=== PATIENT | male | born 1965 ===

== ENCOUNTER 2017-03-29 12:25 | Emergency (ER) | payer MEDICARE ==
[2017-03-29 12:26] VITALS: BMI 28.1
--- NOTE | 2017-03-29 13:02 | ED PDOC ---
Arrival/HPI - General Chief Complaint: Back Pain Time Seen by Provider: 03/29/17 12:45 Historian: Patient - History of Present Illness Narrative History of Present Illness (Text): 03/29/17 12:57 A 51 year old male, whose past medical history includes chronic back pain, presents to the emergency department complaining of lower back pain for 4 days. Patient reports has experienced back pain for years but has recently worsened. Also, patient mentions pain radiates down to his calves bilaterally. Patient states he does not work at this time, and has no history of smoking, EtOH abuse and substance abuse. Patient denies of any nausea, vomiting, diarrhea, urinary output changes, or any other complaints. PMD: Dr. Rohith Smith Time/Duration: < week (4 days) Symptom Onset: Gradual Symptom Course: Unchanged Associated Symptoms (Text): 03/29/17 13:22 Chronic low back pain for many years with multiple previous back surgeries. Pain radiated to both calves for 6 or 8 months. He complains of worsening pain over the last 4 days. No injury or trauma. No relief with Naprosyn. No abdominal pain nausea vomiting diarrhea constipation or GI bleeding. No genitourinary symptoms. No weakness. No injury or trauma. He appears comfortable and in no distress. No imaging is indicated at this time. Past Medical History - Provider Review Nursing Documentation Reviewed: Yes - Cardiac Hx Cardiac Disorders: Yes - Pulmonary Hx Respiratory Disorders: No - Neurological Hx Neurological Disorder: No - HEENT Hx HEENT Disorder: No - Renal Hx Renal Disorder: No - Endocrine/Metabolic Hx Endocrine Disorders: No - Hematological/Oncological Hx Blood Disorders: No - Integumentary Hx Dermatological Disorder: No - Musculoskeletal/Rheumatological Hx Musculoskeletal Disorders: Yes Hx Back Pain: Yes Hx Herniated Disk: Yes Hx Spinal Stenosis: Yes - Gastrointestinal Hx Gastrointestinal Disorders: No - Genitourinary/Gynecological Hx Genitourinary Disorders: No - Psychiatric Hx Psychophysiologic Disorder: No Hx Substance Use: No - Surgical History Hx Orthopedic Surgery: Yes (SPINAL DECOMPRESSION, FUSSION, LAMINECTOMY) - Anesthesia Hx Anesthesia: Yes Hx Anesthesia Reactions: No Hx Malignant Hyperthermia: No - Suicidal Assessment Feels Threatened In Home Enviroment: No Family/Social History - Physician Review Nursing Documentation Reviewed: Yes Family/Social History: No Known Family HX Smoking Status: Never Smoked Hx Alcohol Use: No Hx Substance Use: No Allergies/Home Meds Allergies/Adverse Reactions: Allergies No Known Allergies Allergy (Verified 03/29/17 12:45) Review of Systems - Physician Review All systems were reviewed & negative as marked: Yes - Review of Systems Constitutional: Normal Respiratory: Normal Cardiovascular: Normal Gastrointestinal: absent: Abdominal Pain, Diarrhea, Nausea, Vomiting Genitourinary Male: absent: Dysuria, Frequency, Hematuria, Urinary Output Changes Musculoskeletal: Back Pain (lower back pain radiating down to calves bilaterally ). absent: Neck Pain Neurological: absent: Focal Weakness, Gait Changes Physical Exam Vital Signs Reviewed: Yes Vital Signs Temp Pulse Resp BP Pulse Ox 03/29/17 12:51 98.0 F 64 16 120/79 99 Temperature: Afebrile Blood Pressure: Normal Pulse: Regular Respiratory Rate: Normal Appearance: Positive for: Well-Appearing, Non-Toxic, Comfortable Pain Distress: Mild Mental Status: Positive for: Alert and Oriented X 3 - Systems Exam Head: Present: Atraumatic, Normocephalic Pupils: Present: PERRL Extroacular Muscles: Present: EOMI Conjunctiva: Present: Normal Mouth: Present: Moist Mucous Membranes Neck: Present: Normal Range of Motion Respiratory/Chest: Present: Clear to Auscultation, Good Air Exchange. No: Respiratory Distress, Accessory Muscle Use Cardiovascular: Present: Regular Rate and Rhythm, Normal S1, S2. No: Murmurs Abdomen: Present: Normal Bowel Sounds. No: Tenderness, Distention, Peritoneal Signs, Rebound, Guarding Back: Present: Paraspinal Tenderness (mild paraspinal lumbar tenderness bilaterally). No: CVA Tenderness, Midline Tenderness, Other (no scoliosis, no spasms) Upper Extremity: Present: Normal Inspection. No: Cyanosis, Edema Lower Extremity: Present: Normal Inspection, NORMAL PULSES, Other (straight leg test negative). No: Edema, CALF TENDERNESS Neurological: Present: GCS=15, CN II-XII Intact, Speech Normal, Motor Func Grossly Intact, Normal Sensory Function, Normal Cerebellar Funct, Gait Normal, Memory Normal Skin: Present: Warm, Dry, Normal Color. No: Rashes Psychiatric: Present: Alert, Oriented x 3, Normal Insight, Normal Concentration Medical Decision Making ED Course and Treatment: 03/29/17 13:00 Impression: 52 year old male with lower back pain radiating down to calves bilaterally. Physical exam shows mild paraspinal lumbar tenderness, no scoliosis , no spasms; straight leg test negative; normal neuro exam. Plan: -- Flexiril -- Toradol -- Reassess and disposition Prior Visits: Notes and results from previous visits were reviewed. Patient was last seen in the emergency department on 07/28/2013 for with acute exacerbation. Patient was discharged home. Progress Notes: 03/29/17 14:21 Complete relief of pain post-Toradol and Flexeril. - Medication Orders Current Medication Orders: Discontinued Medications Cyclobenzaprine HCl (Flexeril) 10 mg PO ONCE MONIQUE Cyclobenzaprine HCl (Flexeril) 10 mg PO ONCE ONE Stop: 03/29/17 13:01 Last Admin: 03/29/17 13:35 Dose: 10 mg Ketorolac Tromethamine (Toradol) 60 mg IM ONCE ONE Stop: 03/29/17 12:53 Last Admin: 03/29/17 13:33 Dose: 60 mg MAR Pain Assessment Document 03/29/17 13:33 AB (Rec: 03/29/17 13:34 AB [id number]) Pain Reassessment Is this a pain reassessment? Yes Sleep Is patient sleeping during reassessment? No Presence of Pain Presence of Pain Yes Pain Scale Used Pain Scale Used Numeric Location Upper or Lower Lower Pain Location Body Site Back Description Description Constant Intensity of Pain at present 10 Pain Behavior Rubbing Site Aggravating Factors ADL's Changing Position Exercise/Activity Alleviating Factors/Management Medication Techniques Heat Alleviating Factors Medication IM Administration Charges Document 03/29/17 13:33 AB (Rec: 03/29/17 13:34 AB [id number]) Injection Site MAR Injection Site Left Deltoid Charges for Administration # of IM Administrations 1 - Scribe Statement The provider has reviewed the documentation as recorded by the Vanessa Majano Provider Scribe Attestation: All medical record entries made by the Vanessa were at my direction and personally dictated by me. I have reviewed the chart and agree that the record accurately reflects my personal performance of the history, physical exam, medical decision making, and the department course for this patient. I have also personally directed, reviewed, and agree with the discharge instructions and disposition. Disposition/Present on Arrival - Present on Arrival Any Indicators Present on Arrival: No History of DVT/PE: No History of Uncontrolled Diabetes: No Urinary Catheter: No History of Decub. Ulcer: No History Surgical Site Infection Following: None - Disposition Have Diagnosis and Disposition been Completed?: Yes Diagnosis: Low back pain Disposition: HOME/ ROUTINE Disposition Time: 14:21 Patient Plan: Discharge Condition: IMPROVED Discharge Instructions (ExitCare): Acute Low Back Pain (ED) Prescriptions: Cyclobenzaprine [Cyclobenzaprine HCl] 5 mg PO Q8 #15 tab Cyclobenzaprine [Cyclobenzaprine HCl] 5 mg PO Q8 #15 tab Referrals: Rohith Smith [Primary Care Provider] - Follow up with primary Forms: [employer] (Anguillan)
[2017-03-29 14:52] VITALS: BP 119/76; PULSE 60; RESP 18; TEMP 98.2; O2SAT 100
== END 2017-03-29 14:51 | disposition home or self-care (01) ==
LOC: ED 12:25
DX: M54.5 Low back pain (principal)
CPT/HCPCS: 96372; 99283; J1885

== ENCOUNTER 2017-08-25 12:16 | Emergency (ER) | payer MEDICARE ==
[2017-08-25 12:16] VITALS: BMI 28.1
--- NOTE | 2017-08-25 13:47 | ED PDOC ---
Arrival/HPI - General Chief Complaint: Back Pain Time Seen by Provider: 08/25/17 13:41 Historian: Patient - History of Present Illness Narrative History of Present Illness (Text): 08/25/17 13:44 pt p/w + worsening lower back pain x 6 days; pt states he usually have lower back pain due to chronic back pain sustained since ; pt states the lower back pain over the last 6 days started when he was driving and sneezed and causing him to have the lower back pain; pt states pain is lower back and radiates to left gluteal region and down the left thigh; pt states pain is 8-9/ 10; pt states lower back/leg pain is unchanged compare with prior back exacerbations, pt states no new numbness/tingling; pt states no fever/chills/ sweats, no cp/sob/palpitations, no abd pain, no n/v, no urinary/bowel changes, no incontinence, no penile/rectal numbness/tingling; pt denied LOC; pt denied fall/trauma/sick contact, no travel; pt denied excessive lifting/walking recently. pt states at home mediations are not helping pt is here for further eval pt's without other complaints pt just recently finished a course of steroids provided by neurology pt sees PCP/neurology; no pain mgt Time/Duration: < week (6 days) Symptom Onset: Gradual Symptom Course: Worsening Quality: Tightness, Cramping Severity Level: 9, Severe Activities at Onset: Rest Context: Home, Other (exertion) Past Medical History - Provider Review Nursing Documentation Reviewed: Yes - Travel History Have you recently traveled outside [place] w/in the past 3 mons?: No - Past History Past History: No Previous - Infectious Disease Hx of Infectious Diseases: None - Cardiac Hx Cardiac Disorders: Yes - Pulmonary Hx Respiratory Disorders: No - Neurological Hx Neurological Disorder: No - HEENT Hx HEENT Disorder: No - Renal Hx Renal Disorder: No - Endocrine/Metabolic Hx Endocrine Disorders: No - Hematological/Oncological Hx Blood Disorders: No - Integumentary Hx Dermatological Disorder: No - Musculoskeletal/Rheumatological Hx Musculoskeletal Disorders: Yes Hx Back Pain: Yes (injury 1995) Hx Herniated Disk: Yes Hx Spinal Stenosis: Yes - Gastrointestinal Hx Gastrointestinal Disorders: No - Genitourinary/Gynecological Hx Genitourinary Disorders: No - Psychiatric Hx Psychophysiologic Disorder: No Hx Substance Use: No - Surgical History Hx Orthopedic Surgery: Yes (SPINAL DECOMPRESSION, FUSSION, LAMINECTOMY) - Anesthesia Hx Anesthesia: Yes Hx Anesthesia Reactions: No Hx Malignant Hyperthermia: No - Suicidal Assessment Feels Threatened In Home Enviroment: No Family/Social History - Physician Review Nursing Documentation Reviewed: Yes Family/Social History: No Known Family HX Smoking Status: Never Smoked Hx Alcohol Use: No Hx Substance Use: No Hx Substance Use Treatment: No Allergies/Home Meds Allergies/Adverse Reactions: Allergies No Known Allergies Allergy (Verified 08/25/17 12:39) Review of Systems - Review of Systems Constitutional: Normal Eyes: Normal ENT: Normal Respiratory: Normal Cardiovascular: Normal Gastrointestinal: Normal Genitourinary Male: Normal Musculoskeletal: Back Pain Skin: Normal Neurological: Normal Endocrine: Normal Hemo/Lymphatic: Normal Psychiatric: Normal Physical Exam Vital Signs Reviewed: Yes Vital Signs Temp Pulse Resp BP Pulse Ox 08/25/17 12:34 98.5 F 72 18 111/75 97 Temperature: Afebrile Blood Pressure: Normal Pulse: Regular Respiratory Rate: Normal Appearance: Positive for: Well-Appearing, Uncomfortable, Other (uncomfortable, alert/awake, resting/sitting on the bed; + moderate distress due to pain; + cooperative; GCS = 15, oriented x 3) Pain Distress: Moderate Mental Status: Positive for: Alert and Oriented X 3 - Systems Exam Head: Present: Atraumatic, Normocephalic Pupils: Present: PERRL, Other (no nystagmus, no photophobia, sclera anicteric, visual field intact b/l) Extroacular Muscles: Present: EOMI Conjunctiva: Present: Normal Ears: Present: Normal Mouth: Present: Moist Mucous Membranes, Normal Teeth, Other (uvula/tongue are midline, no exudate/lesions). No: Drooling Pharnyx: Present: Normal Nose (External): Present: Atraumatic Nose (Internal): Present: Normal Inspection Neck: Present: Normal Range of Motion, Trachea Midline, Other (no meningeal signs, no midline tenderness, no step off, no nuchal rigidity). No: MIDLINE TENDERNESS Respiratory/Chest: Present: Clear to Auscultation, Good Air Exchange, Other ( CTA b/l, no w/r/r, no accessory muscle use is noted, no tachypenia) Cardiovascular: Present: Regular Rate and Rhythm, Normal S1, S2. No: Murmurs Abdomen: Present: Normal Bowel Sounds, Other (well nourished male, no focal tenderness, no hood's sign, no mcburney's point tenderness, no masses/rebound/ guarding/rigidity) Back: Present: Normal Inspection, Paraspinal Tenderness, Other (+ diffuse lower lumbar tenderness, no step off, no midline tenderness, no CVAT b/l, no gross deformities noted). No: CVA Tenderness Upper Extremity: Present: Normal Inspection, Normal ROM, NORMAL PULSES, Neurovascularly Intact, Capillary Refill < 2s Lower Extremity: Present: Normal Inspection, NORMAL PULSES, Normal ROM, Neurovascularly Intact, Capillary Refill < 2 s, Other (+ left leg straight leg raising noted, strength 5-/5 left leg; +5/5 right leg; neurovasc intact b/l, no edema noted). No: Slim's Sign, Tenderness Neurological: Present: GCS=15, CN II-XII Intact, Speech Normal Skin: Present: Warm, Normal Color, Other (cap refill < 1 sec, no ulcerations, no petechiae). No: Rashes Psychiatric: Present: Alert, Oriented x 3 Medical Decision Making ED Course and Treatment: 08/25/17 13:20 Impression: acute on chronic lower back pain i have consider all the differential diagnosis regarding pt's chief medical complaints/clinical findings, including but are not limited to: back pain A/P: acute on chronic lower back pain - pain control - observe - supportive care 08/25/17 15:18 pt states pain is improved, and is currently at 5/10 pt remained able to stand/walk with min assistance (with cane) pt is made aware of his medical results pt is encouraged not to take motrin/naprosyn together pt will f/u as directed pt will be discharged home Re-evaluation Time: 15:18 Reassessment Condition: Improving,but remains with symptoms - Medication Orders Current Medication Orders: Discontinued Medications Diazepam (Valium) 5 mg PO ONCE ONE PRN Reason: Protocol Stop: 08/25/17 13:43 Last Admin: 08/25/17 13:50 Dose: 5 mg Hydromorphone HCl (Dilaudid) 1 mg IM ONCE ONE Stop: 08/25/17 13:43 Last Admin: 08/25/17 13:52 Dose: 1 mg MAR Pain Assessment Document 08/25/17 13:52 MICKIE (Rec: 08/25/17 13:52 MICKIE [id number]) Pain Reassessment Is this a pain reassessment? Yes Presence of Pain Presence of Pain Yes Pain Scale Used Pain Scale Used Numeric Location Left, Right or Bilateral Left Upper or Lower Lower Pain Location Body Site Back Description Description Sharp Intensity of Pain at present 8 IM Administration Charges Document 08/25/17 13:52 MICKIE (Rec: 08/25/17 13:52 MICKIE [id number]) Injection Site MAR Injection Site Right Deltoid Charges for Administration # of IM Administrations 1 Ketorolac Tromethamine (Toradol) 30 mg IM STAT STA Stop: 08/25/17 13:42 Last Admin: 08/25/17 13:51 Dose: 30 mg MAR Pain Assessment Document 08/25/17 13:51 MICKIE (Rec: 08/25/17 13:52 MICKIE [id number]) Pain Reassessment Is this a pain reassessment? Yes Presence of Pain Presence of Pain Yes Pain Scale Used Pain Scale Used Numeric Location Left, Right or Bilateral Left Upper or Lower Lower Pain Location Body Site Back Description Description Sharp Intensity of Pain at present 8 IM Administration Charges Document 08/25/17 13:51 MICKIE (Rec: 08/25/17 13:52 MICKIE [id number]) Injection Site MAR Injection Site Left Deltoid Charges for Administration # of IM Administrations 1 Disposition/Present on Arrival - Present on Arrival Any Indicators Present on Arrival: No History of DVT/PE: No History of Uncontrolled Diabetes: No Urinary Catheter: No History of Decub. Ulcer: No History Surgical Site Infection Following: None - Disposition Have Diagnosis and Disposition been Completed?: Yes Diagnosis: Acute exacerbation of chronic low back pain Disposition: HOME/ ROUTINE Disposition Time: 15:19 Patient Plan: Discharge Condition: STABLE Discharge Instructions (ExitCare): Low Back Pain in Adults, Chronic Pain Print Language: KOSOVAN Additional Instructions: Make sure to see your doctor in 1-2 days DRINK PLENTY OF FLUIDS NO HEAVY weight bearing NO excessive walking/standing DO NOT TAKE MOTRIN/NAPROSYN TOGETHER take your medications as prescribed RETURN TO ED IF worse pain, cant breath, persistent vomiting, high fever >101- 102 for hours, altered behavior, unable to urinate, heavy/persistent bleeding, passing out, chest pain, urinary/bowel incontience; leg weakness, or other medical emergencies Prescriptions: diaZEpam [Valium] 5 mg PO TID PRN #12 tab PRN Reason: Muscle Spasm Famotidine [Pepcid] 20 mg PO BID #30 tab Ibuprofen [Motrin] 400 mg PO QID PRN #30 tab PRN Reason: Pain, Mild (1-3) oxyCODONE/Acetaminophen [Percocet 5/325 mg Tab] 1 tab PO TID PRN #15 tab PRN Reason: Pain, Moderate (4-7) Referrals: Rohith Smith [Primary Care Provider] - Follow up with primary Nagi Feliciano MD [Staff Provider] - Follow up with primary Forms: [employer] (Yakut)
[2017-08-25] MEDS: HYDROmorphone 1 mg/ml ISec IM ONE (13:52)
[2017-08-25 15:23] VITALS: BP 128/74; PULSE 62; RESP 16; TEMP 97.8; O2SAT 98
== END 2017-08-25 15:40 | disposition home or self-care (01) ==
LOC: ED 12:16
DX: M54.5 Low back pain (principal); G89.29 Other chronic pain
CPT/HCPCS: 96372; 99282; J1170; J1885